=== PATIENT | female | born 1935 | race Native Hawaiian/Other Pacific Islander ===

== ENCOUNTER 2016-06-07 12:40 | Outpatient (CLI) | payer OTHER | END 2016-06-07 19:08 | disposition home or self-care (01) | LOC: MAMMO 12:40 | DX: Z12.31 Encounter for screening mammogram for malignant neoplasm of breast (principal) | CPT/HCPCS: G0202-TC ==

== ENCOUNTER 2018-06-12 14:01 | Outpatient (CLI) | payer OTHER | END 2018-06-12 20:22 | disposition home or self-care (01) | LOC: MAMMO 14:01 | DX: Z12.31 Encounter for screening mammogram for malignant neoplasm of breast (principal) ==